=== PATIENT | female | born 1975 | race Caucasian/White ===

== ENCOUNTER 2024-08-16 14:50 | Emergency (ER) | payer MEDICAID, SELFPAY ==
[2024-08-16 14:55] VITALS: BP 128/82; PULSE 94; RESP 18; TEMP 36.7; O2SAT 95; BMI 18.9
--- NOTE | 2024-08-16 15:10 | ED_ITS ---
HPI - General Adult General Chief complaint: Eye Problems Stated complaint: eye infection Time Seen by Provider: 08/16/24 15:02 Source: patient Mode of arrival: ambulatory Limitations: no limitations History of Present Illness ED Provider: Mackenzie Younger HPI narrative: 49 yold female with pmh of styes presents to the ED for left lower eyelid irrattiont. patietn states she has lump in left lower eyelid. patient had the same issue in right eye that resolved on it's own. patient denies any eye pain, change in vision, wearing contacts, recent trauma, or foreign body in the eye. Related Data Allergies Allergy/AdvReac Type Severity Reaction Status Date / Time No Known Allergies Allergy Verified 08/16/24 14:55 [No Known Allergies*] Review of Systems 2 Review of Systems: left lower eyelid irratation Yes all other systems are reviewed and are negative [facility] Social History Social History Advance Directives: No Advance Directives Information Provided: No Do you have a plan to hurt others: No Plan Physical Exam ED Vital Signs: Vital Signs - 24 hr 08/16/24 14:55 08/16/24 15:46 Temperature 98.0 F 98.0 F Pulse Rate 94 94 Respiratory Rate 18 18 Blood Pressure 128/82 128/82 Pulse Oximetry 95 95 Oxygen Delivery Method Room Air Room Air BMI result Body Mass Index 18.9 Const General: cooperative, healthy appearing, comfortable, no acute distress, well developed, alert, awake and Physically active Orientation/consciousness: patient oriented x3 HENMT Head: Yes normal to inspection, Yes No palpable skull fracture present, Yes normocephalic, Yes atraumatic and No abrasion Ears: hearing grossly normal bilaterally, external ears normal, TM's normal bilaterally, TM normal on the right, TM normal on the left, EAC's normal, mastoids normal and no periauricular adenopathy Face and sinus: Yes normal facial exam, Yes sinuses nontender and Yes face symmetric Mouth: Normal oral and palatal mucosa present, lip normal and tongue normal Throat: Yes posterior oropharynx normal, Yes tonsils normal and Yes uvula midline Eyes Eyes/upper lids images: 2 1. positive for stye with conjuctiva erythema and eyelid swelling. Negative for crusting, discharge, foreign body, or hyphema. Negative for signs of corneal abrasions, corneal ulcer, glaucoma, foreign body, orbital cellulitis, globe rupture, preseptal cellulitis. 2. positive for stye with conjuctiva erythema and eyelid swelling. Negative for crusting, discharge, foreign body, or hyphema. Negative for signs of corneal abrasions, corneal ulcer, glaucoma, foreign body, orbital cellulitis, globe rupture, preseptal cellulitis. Neck Neck: Yes normal visual inspection, Yes full ROM, Yes no lymphadenopathy, Yes no meningeal signs, Yes trachea midline, Yes supple, No anterior neck swelling and No tender Chest Chest palpation & inspection: normal inspection of the chest and normal palpation of entire chest wall Resp Effort & Inspection: normal respiratory effort and able to speak in complete sentences Auscultation: clear to auscultation bilaterally Cardio Jugular venous distension: no JVD Heart sounds: S1 normal heart sound present and S2 normal heart sound present GI Inspection: Yes normal to inspection Palpation (GI): Soft to palpation, not firm, nontender, no guarding and not rigid General: Yes no CVA tenderness Back/Spine/Pelvis Back: no CVA tenderness and No back tenderness Skin General skin exam: no rashes or lesions noted, elasticity normal and turgor normal Neuro General: patient oriented x3, gait normal, tone normal, moves all extremities, Normal light touch and pain sensation, no meningeal signs, no focal motor deficits and CN's II-XI intact bilaterally Extrem General: Yes normal to inspection, Yes full ROM and Yes capillary refill normal Psych Appearance: grossly normal, well kempt and not disheveled Medical Decision Making Medical Decision Making MDM Narrative: RME: 49 yold female presents to The ED for left lower eyelid swelling, redness for the past couiple of days. patient states she had it on her right eye and now on the left. Physical exam positive left lower eyelid stye with conjunctiva for erythema. Not Suspecting orbital cellulitis, glaucoma, corneal abrasion, corneal ulcer, globe rupture, episcleritis/scleritis, foreign body, or any other life threatening etiologies. Right eye upper eyelid positive for stye also. Patient explained worrisome signs and informed to return to the ED immediately. Patient was informed she will need to follow up with our eye doctor. Patient has left before receiving discharge papers. Differential Diagnosis Differential Diagnoses: The differential diagnosis associated with the presentation includes (Stye, change alone, conjunctivitis,) Admission/Observation Consideration of admission/observation: Escalation of care including admission/observation considered Independent Historian Clinical information obtained from an independent historian. History obtained from or confirmed by: Other (patient) Prescription Management I considered prescription management with: Other Discharge Plan Discharge Clinical Impression: Hordeolum externum (stye) Patient Disposition: Home, Self-Care Instructions: Stye (ED) Additional Instructions: Physical exam indicates stye. Recommend warm compress 4 to 5 times a day. You will need to follow up with eye doctor. Return to the ED immediately for any worsening eye swelling, any blurry vision, change in vision, eye pain, fever, chills, or any other concerning symptoms. Referrals: Toby Smith [Physician] - (Recurrent styes) Stand Alone Forms: Work/School Release Interventions: ED Discharge Assessment Last Done: 08/16/24 15:46 Discharge Date/Time: 08/16/24 15:47 Print Language: [place]
[2024-08-16 15:46] VITALS: BP 128/82; PULSE 94; RESP 18; TEMP 36.7; O2SAT 95
--- OUTSIDE RECORDS SUMMARY | 2024-08-16 18:12 | XMS_ITS | Clinical Summary ---
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 Active naloxone (NARCAN) 4 mg/0.1 mL Liquid nasal spray deviceIndications:Co ximena use disorder (HCC) Campo contents (4mg) into one nostril once. May repeat every 2 to 3 minutes in alternating nostrils. Call 911 immediately after use. 1 each 07/05/2024 Active Active Problems Problem Noted Date Diagnosed Date Opioid use disorder, severe, dependence 07/05/19 25 Tobacco use disorder 07/05/2024 Alcohol use disorder, severe, dependence 025 Cocaine use disorder 07/05/2024 Alcohol-induced acute pancre atitis, unspecified complication status 07/03/2024 Alcohol withdrawal syndrome, with unspecified co mplication 06/29/2024 Encounters Date Type Department Care Team Description 07/03/2024 11:59 AM EST - 07/05/2024 6:24 PM EST Hospital Encounter [facility] [address] [address] Al Jade MD Brooks, MD Carlton Fox, Tyron Portillo MD Alcohol-induced pancreatitis (Primary Dx); Heroin abuse (HCC); Crack cocaine use; Alcohol withdrawal syndrome, with unspecified complication (HCC); Cocaine use disorder (HCC) Discharge Disposition: Left Against Medical Advice/ AMA 07/02/2024 9:44 PM EST - 07/03/2024 1:57 AM EST Emergency [facility] Emergency Department [address] [place] [address] Alcohol use disorder (Primary Dx); Encounter for wound re-check Discharge Disposition: Home or Self Care 07/02/2024 Travel 07/02/[address] [facility] [place] [address] [place] [address] Debra Sue RN 06/29/2024 8:09 AM EST - 07/01/2024 3:46 PM EST Hospital Encounter [facility] 4 [address] [place] [address] Jennifer Rivas MD Marino, Frank J, Landon Casey MD Bergner, Anat, MD Broess, Jennifer L, DO Alcohol withdrawal syndrome without complication (HCC) (Primary Dx); Finger swelling Discharge Disposition: Left Against Medical Advice/ AMA 06/29/2024 Travel from Last 3 Months Immunizations Name Administration Dates Next Due Tdap 06/30/2024 Social History Tobacco Use Types Packs/Day Years Used Date Smoking Tobacco: Every Day Cigarettes 0.5 33.3 Started: 1991 [facility] AeroSurgical Answer Date Recorded In the past 12 months has e 10X10 Room, gas, oil, or water [employer] threatened to shut off services in your home? Patient declined 07/04/2024 AUDIT-C Answer Date Recorded Q1: How often do you have a drink containing alcohol? 4 or more times a week 07/03/2024 Q2: How many drinks containi ng alcohol do you have on a typical day when you are drinking? 10 or more Q3: How often do you have si x or more drinks on one occasion? Daily or almost daily 07/03/2024 Hunger Vital Sign Answer Date Recorded Within the past 12 months, y ou worried that your food would run out before you got the money to buy more. Patient declined Within the past 12 months, t he food you bought just didn't last and you didn't have money to get more. Patient declined PRAPARE - Transportation Answer Date Re corded In the past 12 months, has l ack of transportation kept you from medical appointments or from getting medications? Patient declined 07/04/2024 In the past 12 months, has l ack of transportation kept you from meetings, work, or from getting things needed for daily living? Patient declined 07/04/2024 Housing Stability Vital Sign Answer Jose e Recorded In the last 12 months, was t here a time when you were not able to pay the mortgage or rent on time? Patient declined 07/04/19 25 In the past 12 months, how m any times have you moved where you were living? 1 07/04/2024 At any time in the past 12 m [facility], were you homeless or living in a prison (including now)? Patient declined 07/04/2024 Sex and Gender Information Value Date Recorded Sex Assigned at Female 06/29/2024 8:13 AM EST Gender Identity Female 06/29/2024 8:13 AM EST Sexual Orientation Choose not to disclose 2024 8:13 AM EST Last Filed Vital Signs Vital Sign Reading Time Taken Comments Blood Pressure 131/88 07/05/2024 8:00 AM EST Pulse 64 07/05/2024 8:00 AM EST Temperature 36.5 ??C (97.7 ??F) 07/05/2024 8:00 AM ES T Respiratory Rate 18 07/05/2024 8:00 AM EST Oxygen Saturation 98% 07/05/2024 8:00 AM EST Inhaled Oxygen Concentration - - Weight 55.7 kg (122 lb 12.7 oz) 07/05/2024 5:55 AM EST Height 162.6 cm (5' 4 ) 07/04/2024 3:55 AM EST Body Mass Index 21.08 07/04/2024 3:55 AM EST Plan of Treatment Health Maintenance Due Date Last Done Comments Hepatitis C Virus Screening 1977 HIV Screening 1990 Hepatitis B Vaccines (1 of 3 - 19+ 3-dose series) 06/1995 Pneumococcal Vaccine: Pediat lucrecia (0-5 Years) and At-Risk Patients (6 to 49 Years) (1 of 2 - PCV) 1996 Pap Smear (Ages 21-65) 1998 Mammogram 2017 Colonoscopy 2022 Influenza Vaccine 12/11/2023 COVID-19 Vaccine ( season) 2024 DTaP/Tdap/Td Vaccines (2 - Td or Tdap) 06/30/2034 Procedures Procedure Name Priority Date/Time Associated Diagnosis Comments COMPLETE BLOOD COUNT, WITHOUT DIFFERENTIAL Routine 07/05/2024 7:48 AM EST PHOSPHORUS Routine 07/05/2024 7:48 AM EST MAGNESIUM Routine 07/05/2024 7:48 AM EST BASIC METABOLIC PANEL Routine 07/05/2024 7:48 AM EST HEPATIC FUNCTION PANEL STAT 7:13 AM EST MAGNESIUM STAT 07/04/2024 7:13 AM EST BASIC METABOLIC PANEL STAT 07/04/2024 7:13 AM EST COMPLETE BLOOD COUNT, WITHOUT DIFFERENTIAL STAT 07/04/2024 7:13 AM EST XR HAND 3+ VIEWS-RIGHT STAT 8:01 PM EST ECG 12-LEAD Routine 07/03/2024 5:18 PM EST HEPATIC FUNCTION PANEL STAT 1:19 PM EST POTASSIUM STAT 07/03/2024 1:19 PM EST MAGNESIUM STAT 07/03/2024 1:19 PM EST POCT , URINE (CHARGE) STAT 07/03/2024 12:30 PM EST URINALYSIS W/ REFLEX TO MICROSCOPIC AND CULTURE STAT 07/03/2024 12:17 PM EST TRIGLYCERIDES STAT 07/03/2024 12:02 PM EST LIPASE STAT 07/03/2024 12:02 PM EST COMPREHENSIVE METABOLIC PANEL STAT 07/03/2024 12:02 PM EST COMPLETE BLOOD COUNT, WITH DIFFERENTIAL STAT 07/03/2024 12:02 PM EST POCT GLUCOSE, FINGERSTICK (CHARGE) Routine 06/30/2024 1:28 PM EST IRON AND TOTAL IRON BINDING CAPACITY STAT 06/30/2024 11:07 AM EST FERRITIN STAT 06/30/2024 11:07 AM EST VANCOMYCIN LEVEL-RANDOM STAT 06/30/19 25 11:07 AM EST MAGNESIUM STAT 06/30/2024 7:00 AM EST PHOSPHORUS STAT 06/30/2024 7:00 AM EST BASIC METABOLIC PANEL STAT 06/30/2024 7:00 AM EST NASAL MRSA SCREEN, PCR STAT 6:43 AM EST POCT , URINE (CHARGE) STAT 06/29/2024 1:47 PM EST PHENCYCLIDINE (PCP) SCREEN, URINE STAT 06/29/2024 1:47 PM EST OPIATE SCREEN, URINE STAT 06/29/2024 1:47 PM EST FENTANYL SCREEN, URINE FNTYL5 STAT 06/29/2024 1:47 PM EST COCAINE SCREEN, URINE STAT 06/29/2024 1:47 PM EST CANNABINOID SCREEN, URINE STAT 06/29/2024 1:47 PM EST BENZODIAZEPINE SCREEN, URINE STAT 06/29/2024 1:47 PM EST AMPHETAMINE SCREEN, URINE STAT 06/29/2024 1:47 PM EST BASIC METABOLIC PANEL STAT 06/29/2024 9:25 AM EST COMPLETE BLOOD COUNT, WITH DIFFERENTIAL STAT 06/29/2024 9:25 AM EST from Last 3 Months Results * (ABNORMAL) Complete Blood Count WITHOUT Differential - in AM (07/05/2024 7:48 AM EST) Only the most recent of2 resultswithin the time period is included. White Blood Cell Count 8.3 4.0 - 11.0 Thou/uL 07/05/2024 8:46 AM [facility] Platelet Count 186 150 - 450 Thou/uL 07/05/2024 8:46 AM [facility] Hemoglobin 12.3 11.7 - 15.7 g/dL 07/05/2024 8:46 AM [facility] Hematocrit 36.1 35.0 - 47.0 % 07/05/2024 8:46 AM [facility] Red Blood Cell Count 3.70(L) 4.00 - 5.40 Mil/uL 07/05/2024 8:46 AM [facility] MCV 98 80 - 100 fL 07/05/2024 8:46 AM [facility] MCH 33.2 26.0 - 34.0 pg 07/05/2024 8:46 AM [facility] MCHC 34.1 30.0 - 36.0 g/dL 07/05/2024 8:46 AM [facility] RDW 12.6 11.5 - 14.5 % 07/05/2024 8:46 AM [facility] MPV 10.0 7.5 - 12.5 fL 07/05/2024 8:46 AM [facility] Blood Blood specimen / Unknown 07/05/2024 7:48 AM EST 07/05/2024 8:36 AM EST Tyron Vincent MD LAB BLOOD ORDERABLES Performing Organization Address [facility] [place] [address], [address] [address] * (ABNORMAL) Phosphorus (AM) (07/05/2024 7:48 AM EST) Only the most recent of2 resultswithin the time period is included. Phosphorus 2.5(L) 2.7 - 4.5 mg/dL 07/05/2024 9:11 AM [facility] Blood (Plasma/Serum) 07/05/2024 7:48 AM EST 07/05/2024 8:36 AM EST Tyron Vincent MD LAB BLOOD ORDERABLES Performing Organization Address [facility] [place] [address], [place] [address] * Magnesium (AM) (07/05/2024 7:48 AM EST) Only the most recent of4 resultswithin the time period is included. Magnesium 1.8 1.6 - 2.7 mg/dL 07/05/2024 9:11 AM [facility] Blood (Plasma/Serum) 07/05/2024 7:48 AM EST 07/05/2024 8:36 AM EST Tyron Vincent MD LAB BLOOD ORDERABLES Performing Organization Address [facility] [place] [address], [address] [address] * (ABNORMAL) Basic Metabolic Panel (AM) (07/05/2024 7:48 AM EST) Only the most recent of4 resultswithin the time period is included. Glucose 108(H) 65 - 99 mg/dL 07/05/2024 9:11 AM [facility] Comment:Fasting: <100 mg/dL, Non-Fasting: <200 mg/dL (ADA 2005) Blood Urea Nitrogen (BUN) 10 8 - 21 mg/dL 07/05/2024 9:11 AM [facility] Creatinine 0.6 0.4 - 1.1 mg/dL 07/05/2024 9:11 AM [facility] eGFR >90 >59 07/05/2024 9:11 AM [facility] Comment:CKD-EPI (2020) in mL /min/1.73 sq meters. Sodium 143 136 - 145 mmol/L 07/05/2024 9:11 AM [facility] Potassium 4.0 3.4 - 5.3 mmol/L 07/05/2024 9:11 AM [facility] Chloride 111(H) 98 - 107 mmol/L 07/05/2024 9:11 AM [facility] CO2 25 22 - 33 mmol/L 07/05/2024 9:11 AM [facility] Anion Gap 7 7 - 17 07/05/2024 9:11 AM [facility] Calcium 8.5(L) 8.7 - 10.5 mg/dL 07/05/2024 9:11 AM [facility] BUN/Creatinine Ratio 17 10.0 - 25.0 Ratio 07/05/2024 9:11 AM [facility] Blood (Plasma/Serum) 07/05/2024 7:48 AM EST 07/05/2024 8:36 AM EST Tyron Vincent MD [place] [address], [place] [address] * (ABNORMAL) Hepatic Function Panel (AM) (07/04/2024 7:13 AM EST) Only the most recent of2 resultswithin the time period is included. Alkaline Phosphatase 50 32 - 122 U/L 07/04/2024 8:08 AM [facility] Aspartate Aminotrans (AST) 41 10 - 50 U/L 07/04/2024 8:08 AM [facility] Alanine Aminotrans (ALT) 52(H) 10 - 50 U/L 07/04/2024 8:08 AM [facility] Bilirubin, Total 0.4 0.2 - 1.0 mg/dL 07/04/2024 8:08 AM [facility] Protein, Total 5.4(L) 6.3 - 8.3 g/dL 07/04/2024 8:08 AM [facility] Albumin 3.2(L) 3.5 - 5.0 g/dL 07/04/2024 8:08 AM [facility] Bilirubin, Direct 0.2 0 - 0.2 mg/dL 07/04/2024 8:08 AM [facility] Globulin 2.2 1.5 - 3.9 g/dL 07/04/2024 8:08 AM [facility] Albumin/Globulin Ratio 1.5 1.0 - 3.0 Ratio 07/04/2024 8:08 AM [facility] Blood (Plasma/Serum) 07/04/2024 7:13 AM EST 07/04/2024 7:34 AM EST Susanne Morrissey MD [place] [address], [address] [address] * XR Hand 3+ views-Right (07/03/2024 8:01 PM EST) Anatomical Region Laterality Modality Hand Right Computed Radiogr aphy 07/03/2024 7:29 PM EST Impressions 07/03/2024 8:52 PM EST Normal right hand. Narrative 07/03/2024 8:52 PM EST EXAMINATION: XR HAND, RIGHT CLINICAL INFORMATION: digit pain COMPARISON: None available. ?? TECHNIQUE: AP, lateral, and oblique views of the right hand. FINDINGS: The bones and soft tissues are normal. No fracture. Alignment is anatomic. Joint spaces are maintained. No erosions or soft tissue calcifications. ?? Procedure Note Michael Turcios MD - 07/03/2024 EXAMINATION: XR HAND, RIGHT CLINICAL INFORMATION: digit pain COMPARISON: None available. TECHNIQUE: AP, lateral, and oblique views of the right hand. FINDINGS: The bones and soft tissues are normal. No fracture. Alignment is anatomic. Joint spaces are maintained. No erosions or soft tissue calcifications. IMPRESSION: Normal right hand. Louisa KANG IMG DIAGNOSTIC IMAGI NG ORDERABLES * ECG 12 lead (07/03/2024 5:18 PM EST) Ventricular rate 75 BPM EKG [facility] Atrial rate 75 BPM EKG [facility] P-R interval 132 ms EKG [facility] QRS duration 82 ms EKG [facility] Q-T interval 428 ms EKG [facility] QTC calculation (Bazett) 479 ms EKG [facility] P axis 58 degrees EKG [facility] R axis 52 degrees EKG [facility] T axis 49 degrees EKG [facility] 07/03/2024 5:18 PM EST Narrative EKG [facility] - 07/03/2024 6:59 PM EST Normal sinus rhythm Nonspecific T wave abnormality Prolonged QT No previous ECGs available Confirmed by MD Lorenzo Melissa () on 07/03/2024 6:59:34 PM Procedure Note Elham Lorenzo MD - 07/03/2024 Normal sinus rhythm Nonspecific T wave abnormality Prolonged QT No previous ECGs available Confirmed by MD Lorenzo Melissa () on 07/03/2024 6:59:34 PM Susanne Morrissey MD ECG ORDERABLES EKG [facility] * Potassium (07/03/2024 1:19 PM EST) Potassium 3.9 3.4 - 5.3 mmol/L 07/03/2024 1:52 PM EST [facility] Blood (Plasma/Serum) 07/03/2024 1:19 PM EST 07/03/2024 1:30 PM EST Robert KANG LAB BLOOD ORDERABLES [facility] [address] [place] [address], [facility] [address] [place] [address] * POCT , Urine (07/03/2024 12:30 PM EST) Only the most recent of2 resultswithin the time period is included. Preg Test, Ur Negative Lot Number [id number] [employer] Urine Leatha Marshall APRN POINT OF CARE TEST O RDERABLES * (ABNORMAL) Urinalysis with Reflex to Microscopic and Culture (07/03/2024 12:17 PM EST) Color Yellow 07/03/2024 1:29 PM [facility] Clarity Slightly cloudy 07/03/2024 1:29 PM [facility] Specific Cranks 1.027 1.003 - 1.030 07/03/2024 1:29 PM [facility] pH 6.0 5.0 - 8.0 07/03/2024 1:29 PM [facility] Leukocyte Esterase Negative Negative 07/03/2024 1:29 PM [facility] Nitrite Negative Negative 07/03/2024 1:29 PM [facility] Protein Small (30 mg/dL)(A) Negative 07/03/2024 1:29 PM [facility] Glucose 0 0 - 99 mg/dL 07/03/2024 1:29 PM [facility] Ketones Trace(A) Negative 07/03/2024 1:29 PM [facility] Blood Negative Negative 07/03/2024 1:29 PM [facility] Bilirubin Negative Negative 07/03/2024 1:29 PM [facility] WBC 7(H) 0 - 4 per hpf 07/03/2024 1:30 PM [facility] RBC 2 0 - 4 per hpf 07/03/2024 1:30 PM [facility] Squamous Epithelial Cells 11 PER HPF 07/03/2024 1:30 PM [facility] X-Specimen 16 Voided urine specimen / Unknown 07/03/2024 12:17 PM EST 07/03/2024 1:01 PM EST Leatha Marshall APRN URINE ORDERABLES [facility] [address] [place] [address], [facility] [address] [place] [address] * (ABNORMAL) Complete Blood Count, with Differential (07/03/2024 12:02 PM EST) Only the most recent of2 resultswithin the time period is included. White Blood Cell Count 13.9(H) 4.0 - 11.0 Thou/uL 07/03/2024 12:26 PM [facility] Platelet Count 239 150 - 450 Thou/uL 07/03/2024 12:26 PM [facility] Hemoglobin 14.2 11.7 - 15.7 g/dL 07/03/2024 12:26 PM [facility] Hematocrit 40.8 35.0 - 47.0 % 07/03/2024 12:26 PM [facility] Red Blood Cell Count 4.24 4.00 - 5.40 Mil/uL 07/03/2024 12:26 PM [facility] MCV 96 80 - 100 fL 07/03/2024 12:26 PM [facility] MCH 33.5 26.0 - 34.0 pg 07/03/2024 12:26 PM [facility] MCHC 34.8 30.0 - 36.0 g/dL 07/03/2024 12:26 PM [facility] RDW 12.8 11.5 - 14.5 % 07/03/2024 12:26 PM [facility] MPV 10.1 7.5 - 12.5 fL 07/03/2024 12:26 PM [facility] Neutrophils Auto 79.9 % 07/03/19 12:26 PM [facility] Immature Granulocytes 0.4 % 07/03/2024 12:26 PM [facility] Lymphocytes Auto 14.0 % 07/03/19 12:26 PM [facility] Monocytes Auto 5.5 % 07/03/2024 12:26 PM [facility] Eosinophils Auto 0.1 % 07/03/19 12:26 PM [facility] Basophils Auto 0.1 % 07/03/2024 12:26 PM [facility] Abs Neutrophils Auto 11.12(H) 2.00 - 7.50 Thou/uL 07/03/2024 12:26 PM [facility] Abs Immature Granulocytes 0.06 0.00 - 0.10 Thou/uL 07/03/2024 12:26 PM [facility] Abs Lymphocytes Auto 1.95 1.50 - 4.50 Thou/uL 07/03/2024 12:26 PM [facility] Abs Monocytes Auto 0.76 0.20 - 1.50 Thou/uL 07/03/2024 12:26 PM [facility] Abs Eosinophils Auto 0.01 0.00 - 0.70 Thou/uL 07/03/2024 12:26 PM [facility] Abs Basophils Auto 0.02 0.00 - 0.20 Thou/uL 07/03/2024 12:26 PM [facility] Blood Blood specimen / Unknown 07/03/2024 12:02 PM EST 07/03/2024 12:13 PM [facility] [place] [address], [place] [address] * Triglycerides (07/03/2024 12:02 PM EST) Triglycerides 50 <150 mg/dL 07/03/2024 1:26 PM [facility] Plasma/Serum 07/03/2024 12:0 2 PM EST 07/03/2024 12:13 PM EST [facility] [place] [address], [place] [address] * (ABNORMAL) Lipase (07/03/2024 12:02 PM EST) Lipase 2,826(H) 13 - 60 U/L 07/03/2024 12:49 PM [facility] Blood (Plasma/Serum) 07/03/2024 12:02 PM EST 07/03/2024 12:13 PM EST Leatha Marshall APRN LAB BLOOD ORDERABLES [address] [address], [address] [address] * (ABNORMAL) Comprehensive Metabolic Panel (07/03/2024 12:02 PM EST) Glucose 105(H) 65 - 99 mg/dL 07/03/2024 12:38 PM [facility] Comment:Fasting: <100 mg/dL, Non-Fasting: <200 mg/dL (ADA 2004) Blood Urea Nitrogen (BUN) 19 8 - 21 mg/dL 07/03/2024 12:38 PM [facility] Creatinine 0.8 0.4 - 1.1 mg/dL 07/03/2024 12:38 PM [facility] eGFR >90 >59 07/03/2024 12:38 PM [facility] Comment:CKD-EPI (2020) in mL /min/1.73 sq meters. Sodium 135(L) 136 - 145 mmol/L 07/03/2024 12:38 PM [facility] Potassium Specimen hemolyzed. Test not performed. 3.4 - 5.3 mmol/L 07/03/2024 12:38 PM [facility] Chloride 99 98 - 107 mmol/L 07/03/2024 12:38 PM [facility] CO2 28 22 - 33 mmol/L 07/03/2024 12:38 PM [facility] Calcium 9.3 8.7 - 10.5 mg/dL 07/03/2024 12:38 PM [facility] Alkaline Phosphatase 62 32 - 122 U/L 07/03/2024 12:38 PM [facility] Aspartate Aminotrans (AST) Specimen hemolyzed. Test not performed. 10 - 50 U/L 07/03/2024 12:38 PM [facility] Alanine Aminotrans (ALT) Specimen hemolyzed. Test not performed. 10 - 50 U/L 07/03/2024 12:38 PM [facility] Bilirubin, Total 0.4 0.2 - 1.0 mg/dL 07/03/2024 12:38 PM [facility] Protein, Total 7.1 6.3 - 8.3 g/dL 07/03/2024 12:38 PM [facility] Albumin 4.2 3.5 - 5.0 g/dL 07/03/2024 12:38 PM [facility] BUN/Creatinine Ratio 24 10.0 - 25.0 Ratio 07/03/2024 12:38 PM [facility] Globulin 2.9 1.5 - 3.9 g/dL 07/03/2024 12:38 PM [facility] Albumin/Globuli n Ratio 1.4 1.0 - 3.0 Ratio 07/03/2024 12:38 PM [facility] Anion Gap 8 7 - 17 07/03/2024 12:38 PM [facility] Blood (Plasma/Serum) 07/03/2024 12:02 PM EST 07/03/2024 12:13 PM EST Leatha Marshall APRN [place] [address], [place] [address] * (ABNORMAL) POCT Glucose, Fingerstick (06/30/2024 1:28 PM EST) POC Glucose 126(H) 65 - 99 mg/dL 06/30/2024 1:29 PM EST Blood specimen / Unknown 06/30/2024 1:28 PM EST 06/30/2024 1:29 PM EST Landon Luna MD POINT OF CARE KAREL T ORDERABLES HOSPITAL LAB See Below * (ABNORMAL) Iron and Total Iron Binding Capacity (06/30/2024 11:07 AM EST) Iron 181(H) 59 - 151 ug/dL 07/01/2024 12:18 PM [facility] UIBC <17(L) 112 - 346 ug/dL 07/01/2024 12:36 PM [facility] Total Iron Binding Capacity UIBC concentration below lower limits of detection. Unable to calculate result. 100 - 400 ug/dL 07/01/2024 12:36 PM [facility] Iron Sat UIBC concentration below lower limits of detection. Unable to calculate result. 20 - 50 % 07/01/2024 12:36 PM [facility] Plasma/Serum 06/30/2024 11:0 7 AM EST 06/30/2024 12:59 PM EST Roberta Truong MD LAB BLOOD ORDERABLES Performing Organization Address City/[facility]/[place] [address], [place] [address] * (ABNORMAL) FERRITIN (06/30/2024 11:07 AM EST) Ferritin 156(H) 15 - 150 ug/L 07/01/2024 12:18 PM [facility] Plasma/Serum 06/30/2024 11:0 7 AM EST 06/30/2024 12:59 PM EST Roberta Truong MD LAB BLOOD ORDERABLES Performing Organization Address [facility]/[place] [address], [place] [address] * Vancomycin Level, Random (06/30/2024 11:07 AM EST) Vancomycin, Random 12 mg/L 06/30/2024 1:56 PM [facility] Comment:No reference range e stablished for random levels. Time of Last Dose Information not given 06/30/2024 7:08 AM EST Blood (Plasma/Serum) 06/30/2024 11:07 AM EST 06/30/2024 12:59 PM EST Roberta Truong MD LAB BLOOD ORDERABLES Performing Organization Address [facility] Co de Phone Number [address] [address], [address] [address] * MRSA PCR Screen, Qualitative (06/30/2024 6:43 AM EST) MRSA Result Not Detected Not Detected 9:12 AM EST [facility] Comment:Performed by the Xpe rt MRSA NxG Assay X-Specimen 12 Specimen from nose / Unknown 06/30/2024 6:43 AM EST 06/30/2024 7:12 AM EST Conor Echeverria MD MICROBIOLOGY - GENER AL ORDERABLES Performing Organization Address [facility] Co de Phone Number [address] [address], [address] [address] * Fentanyl Screen, Urine (06/29/2024 1:47 PM EST) Fentanyl Screen, Urine Negative Negative <5 ng/mL 06/29/2024 3:45 PM EST [facility] Comment: * FOR MEDICAL PURPOSES ONLY * ?Confirmation upon request. ?? Serum specimen / Unknown 06/29/2024 1:47 PM EST 06/29/2024 3:14 PM EST Jaspreet Barrios PA-C URINE ORDERABL ES Performing Organization Address [facility] Co de Phone Number [address] [address], [address] [address] * Cannabinoid Screen, Urine (06/29/2024 1:47 PM EST) Cannabinoid Screen, Urine Negative Negative <50 ng/mL 06/29/2024 3:45 PM EST [facility] Comment:* FOR MEDICAL PURPOS ES ONLY * Urine Urine specimen / Unknown 06/29/2024 1:47 PM EST 06/29/2024 3:14 PM EST Bartolomesabrina Castroricky PA-C URINE ORDERABL ES Performing Organization Address [facility] Co de Phone Number [address] [address], [address] [address] * Phencyclidine (PCP) Screen, Urine (06/29/2024 1:47 PM EST) PCP Screen, Urine Negative Negative <25 ng/mL 06/29/2024 3:45 PM EST [facility] Comment:* FOR MEDICAL PURPOS ES ONLY * Urine Urine specimen / Unknown 06/29/2024 1:47 PM EST 06/29/2024 3:14 PM EST Jaspreet Castroricky PA-C URINE ORDERABL ES Performing Organization Address [facility] Co de Phone Number [address] [address], [address] [address] * Opiate Screen, Urine (06/29/2024 1:47 PM EST) Opiate, Urine Negative Negative <300 ng/mL 06/29/2024 3:45 PM EST [facility] Comment:* FOR MEDICAL PURPOS ES ONLY * Urine Urine specimen / Unknown 06/29/2024 1:47 PM EST 06/29/2024 3:14 PM EST Jaspreet Barrios PA-C URINE ORDERABL ES Performing Organization Address [facility] Co de Phone Number [address] [address], [address] [address] * (ABNORMAL) Cocaine Screen, Urine (06/29/2024 1:47 PM EST) Cocaine Screen, Urine Positive( A) Negative <300 ng/mL 06/29/2024 3:45 PM EST [facility] Comment: * FOR MEDICAL PURPOSES ONLY * ?Confirmation upon request. ?? Urine Urine specimen / Unknown 06/29/2024 1:47 PM EST 06/29/2024 3:14 PM EST Bartolomesabrina Castrowell PA-C URINE ORDERABL ES Performing Organization Address [facility] Co de Phone Number [address] [address], [address] [address] * Benzodiazepine Screen, Urine (06/29/2024 1:47 PM EST) Benzodiazepine Screen, Urine Negative Negative <200 ng/mL 06/29/2024 3:45 PM [facility] Comment:* FOR MEDICAL PURPOS ES ONLY * Urine Urine specimen / Unknown 06/29/2024 1:47 PM EST 06/29/2024 3:14 PM EST Jaspreet Castrowell PA-C URINE ORDERABL ES Performing Organization Address [facility] [place] [address], [place] [address] * (ABNORMAL) Amphetamine Screen, Urine (06/29/2024 1:47 PM EST) Amphetamine Screen, Urine Positive( A) Negative <1000 ng/mL 06/29/2024 4:01 PM [facility] Comment: * FOR MEDICAL PURPOSES ONLY * ?Confirmation upon request. ?? Urine Urine specimen / Unknown 06/29/2024 1:47 PM EST 06/29/2024 3:14 PM EST Jaspreet Matthewwell PA-C URINE ORDERABL ES Performing Organization Address [facility] [place] [address], [place] [address] from Last 3 Months Advance Directives * Full Code (Latest Code Status on File) Date Activated Date Inactivated Comments 07/03/2024 4:03 PM Question Answer Comments Decision Thoroughly Discussed with: Patient * Full Code Date Activated Date Inactivated Comments 06/29/2024 4:36 PM 07/02/2024 9:40 PM Question Answer Comments Decision Thoroughly Discussed with: Patient Healthcare Agents on File Name Relationship Healthcare Agent [facility] Communication Teresita Gutiérrez Adult child 4. Next of Kin ( Spouse, Adult Child, Parent, Adult Sibling, Grandparent) Care Teams [employer] Relationship Specialty Start Date End Date Pcp, No PCP - General General Medicine 07/02/24
== END 2024-08-16 15:47 | disposition home or self-care (01) ==
PROVIDERS: Emergency Provider Emergency Medicine
DX: H00.015 Hordeolum externum left lower eyelid (principal)
CPT/HCPCS: 99282